=== PATIENT | male | born 1945 | race Caucasian/White ===

== ENCOUNTER 2017-12-20 18:32 | Emergency (ER) | payer BC ==
[~2017-12-20] VITALS: Ht 188 cm; Wt 102.1 kg
[~2017-12-20 18:32] MED LIST: ASPI81TA28 PO; CHOL1CAP79 PO; LEVO125T72 PO; METO50TA8 PO; NSNN50; OMEG340C PO; OMEP20TA PO; TELM80TA PO; ZCRUNK PO
[2017-12-20 18:38] VITALS: TEMP 36.6; Ht 188 cm; Wt 102.1 kg
[2017-12-20] MEDS ORDERED: SODIUM CHLORIDE 0.9% 1000ML 1,000 ML IV STA (18:57)
--- NOTE | 2017-12-20 19:14 | EMERGENCY ROOM VISIT NOTE ---
History Report prepared by Amado: Viridiana Hurst Under the Supervision of: Dr. Monster Guerrier M.D. First contact with patient: 18:50 Chief Complaint: CARDIAC ASSESSMENT Stated Complaint: LEFT SHOULDER PAIN, JAW PAIN, BURPING Nursing Triage Summary: Pain in the left jaw, left shoulder/back, and is belching, he is unsure if it is indegestion or if it is chest pain. Pain started early this afternoon and experienced it yesterday too. Denies cardiac hx. History of Present Illness The patient is a 71 year old male who presents to the Emergency Room with complaints of constant chest pain with radiation to his neck and left shoulder beginning this morning. He had a similar episode of chest "pressure" yesterday but it went away. He denies any SOB, nausea, vomiting, sweating, no recent fevers, chills cough, congestion, urinary symptoms, diarrhea, headaches or dizziness. He denies any cardiac history. Source of History: patient Onset: this morning Position: chest Quality: pressure Timing: constant Associated Symptoms: + neck pain, No fevers, No chills, No headache, No cough, No SOB, No nausea, No vomiting, No diarrhea, No urinary symptoms Note: Positive pain radiating to the left shoulder. Negative dizziness and congestion. Review of Systems See HPI for pertinent positives and negatives. A total of ten systems were reviewed and were otherwise negative. Family History Family history omitted secondary to the patient's age. Social History Smoking Status: Never Smoker Smokeless Tobacco Use: Unknown Occupation Status: retired Current/Historical Medications Scheduled Allopurinol (Zyloprim), 100 MG PO HS Aspirin (Aspirin Ec), 81 MG PO HS Cholecalciferol (D3 Maximum Strength), 5,000 UNITS PO HS Coenzyme Q10 (Ubidecarenone) (Coq10), 200 MG PO HS Levothyroxine Sodium (Synthroid), 150 MCG PO QAM Metoprolol Succ (Toprol Xl) (Toprol-Xl), 75 MG PO HS [place]-3 Fatty Acids ([place]-3 Fish Oil Maximum 1200 mg), 2,400 MG PO HS Rosuvastatin Calcium (Crestor), 5 MG PO HS Telmisartan (Micardis), 80 MG PO HS Allergies Coded Allergies: No Known Allergies (Unverified , 12/20/17) Physical Exam Vital Signs Date Time Temp Pulse Resp B/P (MAP) Pulse Ox O2 Delivery O2 Flow Rate FiO2 12/20/17 21:30 74 16 123/71 98 12/20/17 20:55 68 16 160/86 96 Room Air 12/20/17 20:43 65 12/20/17 20:08 68 16 97 Room Air 12/20/17 19:32 65 16 123/67 96 Room Air 12/20/17 19:16 98 Room Air 12/20/17 18:38 36.6 78 18 200/96 97 Room Air 12/20/17 18:38 Room Air Physical Exam GENERAL: Awake, alert, well-appearing, in no distress HENT: Normocephalic, atraumatic. Dry mucus membranes. EYES: Normal conjunctiva. Sclera non-icteric. NECK: Supple. No nuchal rigidity. FROM. No JVD. RESPIRATORY: Clear to auscultation. CARDIAC: Regular rate, normal rhythm. Extremities warm and well perfused. Pulses equal. ABDOMEN: Soft, non-distended. No tenderness to palpation. No rebound or guarding. No masses. RECTAL: Deferred. MUSCULOSKELETAL: Chest examination reveals no tenderness. The back is symmetrical on inspection without obvious abnormality. There is no CVA tenderness to palpation. No joint edema. LOWER EXTREMITIES: Calves are equal size bilaterally and non-tender. No edema. No discoloration. NEURO: Normal sensorium. No sensory or motor deficits noted. SKIN: No rash or jaundice noted. Medical Decision & Procedures ER Provider Diagnostic Interpretation: Radiology results as stated below per my review and radiologist interpretation: CHEST ONE VIEW PORTABLE CLINICAL HISTORY: CHEST PAIN dyspnea COMPARISON STUDY: No previous studies for comparison. FINDINGS: Mild emphysematous change. No focal infiltrate. No significant cardiac enlargement. Study is negative for pneumothorax. IMPRESSION: Mild emphysematous change. Otherwise negative study. The above report was generated using voice recognition software. It may contain grammatical, syntax or spelling errors. Electronically signed by: Deion Villagran M.D. 12/20/2017 7:12 PM Laboratory Results 12/20/17 19:12 Red Blood Count 4.77, Mean Corpuscular Volume 90.6, Mean Corpuscular Hemoglobin 32.9, Mean Corpuscular Hemoglobin Concent 36.3, Mean Platelet Volume 11.8, Neutrophils (%) (Auto) 64.3, Lymphocytes (%) (Auto) 24.9, Monocytes (%) (Auto) 6.8, Eosinophils (%) (Auto) 3.1, Basophils (%) (Auto) 0.3, Neutrophils # (Auto) 4.97, Lymphocytes # (Auto) 1.93, Monocytes # (Auto) 0.53, Eosinophils # (Auto) 0.24, Basophils # (Auto) 0.02 12/20/17 19:12 Test 12/20/17 19:12 White Blood Count 7.74 K/uL (4.8-10.8) Red Blood Count 4.77 M/uL (4.7-6.1) Hemoglobin 15.7 g/dL (14.0-18.0) Hematocrit 43.2 % (42-52) Mean Corpuscular Volume 90.6 fL (80-100) Mean Corpuscular Hemoglobin 32.9 pg (25-34) Mean Corpuscular Hemoglobin Concent 36.3 g/dl (32-36) Platelet Count 154 K/uL (130-400) Mean Platelet Volume 11.8 fL (7.4-10.4) Neutrophils (%) (Auto) 64.3 % Lymphocytes (%) (Auto) 24.9 % Monocytes (%) (Auto) 6.8 % Eosinophils (%) (Auto) 3.1 % Basophils (%) (Auto) 0.3 % Neutrophils # (Auto) 4.97 K/uL (1.4-6.5) Lymphocytes # (Auto) 1.93 K/uL (1.2-3.4) Monocytes # (Auto) 0.53 K/uL (0.11-0.59) Eosinophils # (Auto) 0.24 K/uL (0-0.5) Basophils # (Auto) 0.02 K/uL (0-0.2) RDW Standard Deviation 42.5 fL (36.4-46.3) RDW Coefficient of Variation 12.8 % (11.5-14.5) Immature Granulocyte % (Auto) 0.6 % Immature Granulocyte # (Auto) 0.05 K/uL (0.00-0.02) Anion Gap 7.0 mmol/L (3-11) Est Creatinine Clear Calc Drug Dose 74.3 ml/min Estimated GFR () 74.3 Estimated GFR (Non- 64.1 BUN/Creatinine Ratio 16.6 (10-20) Calcium Level 8.9 mg/dl (8.5-10.1) Total Bilirubin 0.7 mg/dl (0.2-1) Direct Bilirubin 0.2 mg/dl (0-0.2) Aspartate Amino Transf (AST/SGOT) 51 U/L (15-37) Alanine Aminotransferase (ALT/SGPT) 97 U/L (12-78) Alkaline Phosphatase 110 U/L (45-117) Troponin I < 0.015 ng/ml (0-0.045) Total Protein 7.2 gm/dl (6.4-8.2) Albumin 4.0 gm/dl (3.4-5.0) Lipase 155 U/L (73-393) Laboratory results reviewed by me Medications Administered Medications (Trade) Dose Ordered Sig/Melchor Route Start Time Stop Time Status Last Admin Dose Admin Sodium Chloride 1,000 ml @ 250 mls/hr Q4H STAT IV 12/20/17 18:57 12/20/17 21:49 DC 12/20/17 19:23 250 MLS/HR ECG Per My Interpretation Indication: chest pain Rate (beats per minute): 71 Rhythm: normal sinus Findings: other (normal axis) Comparison ECG Date: no prior available ED Course 1850: The patient was evaluated in room C9. A complete history and physical exam was performed. 1753: I checked on the patient at this time. He was resting comfortably. 2099: I reevaluated the patient. Discussed results and discharge instructions: He verbalized understanding and agreement. The patient is ready for discharge. Medical Decision I reviewed the patient's past medical history, medications, and the nursing notes as described above. Differential diagnosis: Etiologies such as cardiac ischemia, aortic dissection, pulmonary embolism, pneumonia, pneumothorax, musculoskeletal, infections, pericarditis, myocarditis , esophageal rupture, gastrointestinal, as well as others were entertained. The patient is a 72-year-old gentleman with a past medical history of GUTIERREZ on home CPAP who presents emergency department with constant chest pain with associated jaw shoulder pain that has been constant since this morning ( contrary to this afternoon per triage) per hpi. The patient reports having an unremarkable catheterization several years ago. Of note, the patient reports that he woke up this morning feeling the symptoms as well as similar symptoms yesterday that resolved. He reports that he has a history of reflux and has been belching more and did take Prevacid prior to arrival with improvement in the symptoms. 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 On arrival the patient is relatively well-appearing in no acute distress, afebrile stable vital signs. EKG with nonspecific lateral lateral ST changes however no prior EKGs for comparison. However troponin negative in the setting of greater than 6 hours of constant symptoms thus unlikely to PE ACS. Chest x-ray negative. Otherwise unremarkable. Given the patient's constant symptoms with reassuring workup as well as improvement in his of his symptoms with Prevacid suggest likely related to reflux. Patient will follow up with his beck tender on Saturday. Findings and plan for follow-up reviewed with patient. Patient agreeable and d/c'd per discharge instructions. Medication Reconcilliation Current Medication List: was personally reviewed by me Blood Pressure Screening Patient's blood pressure: Elevated blood pressure Blood pressure disposition: Referred to PCP Impression Primary Impression: Chest pain Scribe Attestation The scribe's documentation has been prepared under my direction and personally reviewed by me in its entirety. I confirm that the note above accurately reflects all work, treatment, procedures, and medical decision making performed by me. Departure Information Dispostion Home / Self-Care Referrals Rock Castillo M.D. (PCP) Forms IMPORTANT VISIT INFORMATION Patient Instructions Acid Reflux, ED Chest Pain Atypical Unkn Cause, My [facility] Additional Instructions Please follow up with your beck tender next week for re-evaluation. The cause of your symptoms is unclear at this time but may be due to your history of reflux. Otherwise, your exam, EKG, chest xray, and lab results did not show signs of an emergent condition at this time. Acetaminophen or ibuprofen for pain and fevers as needed. Continue your Prevacid as needed. Drink plenty of fluids to ensure hydration. Return to the emergency department for worsening symptoms as described in the accompanying instructions.
[2017-12-20 19:16] VITALS: O2SAT 98
[2017-12-20 19:23] LABS: BASO % 0.3 %; BASO ABS # 0.02 K/uL (0-0.2); EOS % 3.1 %; EOS ABS # 0.24 K/uL (0-0.5); HEMATOCRIT 43.2 % (42-52); HEMOGLOBIN 15.7 g/dL (14.0-18.0); IG# 0.05 K/uL (0.00-0.02); LYMPH % 24.9 %; LYMPH ABS # 1.93 K/uL (1.2-3.4); MEAN CELL VOLUME 90.6 fL (80-100); MEAN CORPUSCULAR HEMOGLOBIN 32.9 pg (25-34); MEAN CORPUSCULAR HGB CONC 36.3 g/dl (32-36); MEAN PLATELET VOLUME 11.8 fL (7.4-10.4); MONO % 6.8 %; MONO ABS # 0.53 K/uL (0.11-0.59); NEUT % 64.3 %; NEUT ABS # 4.97 K/uL (1.4-6.5); PLATELET COUNT 154 K/uL (130-400); RED CELL DISTRIBUTION WIDTH CV 12.8 % (11.5-14.5); RED CELL DISTRIBUTION WIDTH SD 42.5 fL (36.4-46.3); WHITE BLOOD COUNT 7.74 K/uL (4.8-10.8)
[2017-12-20] MEDS ORDERED: COEN1CAP7 PO (19:23)
[2017-12-20] MEDS ORDERED: ROSU5TAB PO (19:23)
[2017-12-20] MEDS ORDERED: ALLO100T PO (19:23)
[2017-12-20] MEDS ORDERED: [UNRECOGNIZED DRUG - CODE] PO (19:23)
[2017-12-20] MEDS ORDERED: LEVO150T PO (19:23)
[2017-12-20 19:50] LABS: ALKALINE PHOSPHATASE 110 U/L (45-117); ALT/SGPT 97 U/L (12-78); BLOOD UREA NITROGEN 19 mg/dl (7-18); CALCIUM 8.9 mg/dl (8.5-10.1); CARBON DIOXIDE 24 mmol/L (21-32); CREATININE 1.13 mg/dl (0.60-1.40); GLUCOSE 140 mg/dl (70-99); LIPASE 155 U/L (73-393); TOTAL PROTEIN 7.2 gm/dl (6.4-8.2)
[2017-12-20 20:07] LABS: POTASSIUM 3.9 mmol/L (3.5-5.1)
[2017-12-20 20:11] LABS: SODIUM 138 mmol/L (136-145)
[2017-12-20 20:12] LABS: AST/SGOT 51 U/L (15-37)
[2017-12-20 21:30] VITALS: BP 123/71; PULSE 74; O2SAT 98
== END 2017-12-20 21:31 | disposition home or self-care (01) ==
LOC: C.EDB 18:33 → C.EDC 21:31
DX: R07.9 Chest pain, unspecified (principal); M54.2 Cervicalgia; M25.512 Pain in left shoulder; Z79.82 Long term (current) use of aspirin; Z79.899 Other long term (current) drug therapy